=== PATIENT | female | born 1955 | race African-American/Black ===

== ENCOUNTER → 2017-05-14 | Outpatient (CLI) | payer OTHER ==
[~2017-05-14] MED LIST: ANT12.5 PO; ASPIR LOW81 MG PO; CLONIDINE HCL0.1 MG PO; FAMOTIDINE20 MG PO; FERATAB300 MG PO; HYDROCHLOROTH12.5 M2 PO; HYDROCOT25 M1 PO; KLOR-CON M1010 MEQ PO; LASIX20 MG PO; LIPITOR40 MG PO; LORAZEPAM0.5 MG PO; METFORMIN ER500 M1 PO; OMEPRAZOLE DR20 M1 PO; POTASSIUM CHLO10 MEQ PO; SENSIPAR30 M1 PO; TRE400 PO; ZESTRIL20 MG PO; ZOF4 PO; ZOFRAN ODT4 MG SL; ZOLOFT25 MG PO; ZOLOFT50 MG PO
== END | disposition home or self-care (01) ==
LOC: MA 08:38
PROC: BH02ZZZ Plain Radiography of Bilateral Breasts (ICD-10-PCS; principal; 2017-05-14)
DX: Z12.31 Encounter for screening mammogram for malignant neoplasm of breast (principal)
CPT/HCPCS: G0202

== ENCOUNTER 2017-06-16 05:24 | Emergency (ER) | payer OTHER ==
[2017-06-16 07:26] LABS: CALCIUM 8.2 mg/dL (8.5-10.1); CARBON DIOXIDE 26.7 mmol/L (21-32); POTASSIUM SERUM 3.7 mmol/L (3.5-5.1)
[2017-06-16 07:31] LABS: BILIRUBIN TOTAL 0.12 mg/dL (0.20-1.00); TOTAL PROTEIN, SERUM 7.1 g/dL (6.4-8.2)
[2017-06-16 07:33] LABS: BASOPHIL % 0.3 % (0-2); PLATELET COUNT 222 x10^3mcL (130-400)
[2017-06-16 07:36] LABS: RED CELL DISTRIBUTION WIDTH 15.9 % (11.5-14.5)
[2017-06-16 07:41] LABS: ALBUMIN 3.2 g/dL (3.4-5.0)
[2017-06-16 08:35] VITALS: BP 93/57
== END 2017-06-16 08:35 | disposition home or self-care (01) ==
LOC: ED 05:24
PROVIDERS: Emergency Medicine
DX: R07.9 Chest pain, unspecified (principal); I10 Essential (primary) hypertension; E78.00 Pure hypercholesterolemia, unspecified; M06.9 Rheumatoid arthritis, unspecified; Z79.899 Other long term (current) drug therapy; Z88.5 Allergy status to narcotic agent; Z88.8 Allergy status to other drugs, medicaments and biological substances
CPT/HCPCS: 36415; 83880; J1885; Q0092

== ENCOUNTER 2018-02-02 07:22 | Inpatient (IN) | payer OTHER ==
[~2018-02-02] VITALS: Ht 167.6 cm; Wt 86.7 kg
[2018-02-02 07:34] VITALS: Ht 167.6 cm; Wt 86.7 kg
[2018-02-02 08:35] LABS: BASOPHIL % 0.4 % (0-2); CALCIUM 8.7 mg/dL (8.5-10.1); CARBON DIOXIDE 30.5 mmol/L (21-32); PLATELET COUNT 257 x10^3mcL (130-400); POTASSIUM SERUM 3.8 mmol/L (3.5-5.1)
[2018-02-02 08:37] LABS: ALBUMIN 3.5 g/dL (3.4-5.0); BILIRUBIN TOTAL 0.3 mg/dL (0.20-1.00); RED CELL DISTRIBUTION WIDTH 16.9 % (11.5-14.5); TOTAL PROTEIN, SERUM 7.4 g/dL (6.4-8.2)
[2018-02-02 08:38] LABS: rbc morphology (normal/abnorm) ABNORMAL (NORMAL)
[2018-02-02] MEDS ORDERED: ZOLOFT25 MG PO (09:44)
[2018-02-02] MEDS ORDERED: POTASSIUM CHLO10 MEQ PO (09:44)
[2018-02-02] MEDS ORDERED: LIPITOR40 MG PO (09:45)
[2018-02-02] MEDS ORDERED: LISINOPRIL20 MG PO (09:45)
[2018-02-02] MEDS ORDERED: HYDROCHLORIC AC25 ML (09:45)
[2018-02-02 11:15] LABS: microscopic required? YES; urine erythrocyte TRACE (NEGATIVE)
[2018-02-02 11:24] LABS: CHOLESTEROL/HDL RATIO 3.7; MAGNESIUM 2.4 mg/dL (1.8-2.4); PHOSPHOROUS 3.5 mg/dL (2.5-4.9)
[2018-02-02 11:30] LABS: T3 TOTAL 1.18 ng/mL
[2018-02-02] MEDS ORDERED: LIPI10 PO (11:34)
[2018-02-02] MEDS ORDERED: HYDROCHLOROTHIA25 MG PO (11:39)
[2018-02-02 11:49] VITALS: BP 124/61
[2018-02-02 11:57] LABS: FREE T4 0.91 ng/dL (0.76-1.46); FREE THYROXINE INDEX 2.4 ug/dL (1.4-4.5); T4(THYROXINE) 7.9 ug/dL (4.7-13.3)
[2018-02-02 17:11] VITALS: BP 124/62
[2018-02-02 21:00] VITALS: BP 114/67
[2018-02-03 06:02] VITALS: BP 133/70
[2018-02-03 10:30] VITALS: BP 135/75
[2018-02-03 14:33] VITALS: BP 126/68
[2018-02-03 17:37] VITALS: BP 142/73
[2018-02-03 20:54] VITALS: BP 145/69
[2018-02-04 05:16] VITALS: BP 138/57
[2018-02-04 06:08] LABS: BASOPHIL % 0.4 % (0-2); PLATELET COUNT 246 x10^3mcL (130-400)
[2018-02-04 06:42] LABS: CALCIUM 8.4 mg/dL (8.5-10.1); CARBON DIOXIDE 28.4 mmol/L (21-32); CHLORIDE SERUM 108 mmol/L (98-107); CREATININE SERUM 0.8 mg/dL (0.6-1.0); GFR1 > 60 mL/min; GLUCOSE SERUM 92 mg/dL (74-106); POTASSIUM SERUM 3.8 mmol/L (3.5-5.1); SODIUM SERUM 141 mmol/L (136-145)
[2018-02-04 06:44] LABS: RED CELL DISTRIBUTION WIDTH 17.1 % (11.5-14.5)
[2018-02-04 09:02] VITALS: BP 155/82
[2018-02-04 12:58] VITALS: BP 143/73
[2018-02-04] MEDS ORDERED: FERROUS SULFAT325 M2 PO (14:12)
[2018-02-04] MEDS ORDERED: LIPI20 PO (14:13)
[2018-02-04] MEDS ORDERED: ECO81 PO (14:15)
[2018-02-04] MEDS ORDERED: PHARMASSURE VI500 MG PO (14:22)
[2018-02-04] MEDS ORDERED: METFORMIN HCL500 MG PO (14:28)
[2018-02-04 14:42] VITALS: BP 143/73
== END 2018-02-04 16:39 | disposition home or self-care (01) | DRG 206 ==
LOC: ED 07:22 → DU 09:40
PROVIDERS: Emergency Medicine; Family Medicine
DX: M94.0 Chondrocostal junction syndrome [Tietze] (principal); Z88.6 Allergy status to analgesic agent; Z88.8 Allergy status to other drugs, medicaments and biological substances; M06.9 Rheumatoid arthritis, unspecified; E78.00 Pure hypercholesterolemia, unspecified; F41.9 Anxiety disorder, unspecified; I10 Essential (primary) hypertension; E21.3 Hyperparathyroidism, unspecified; Z83.3 Family history of diabetes mellitus; Z82.49 Family history of ischemic heart disease and other diseases of the circulatory system; E11.65 Type 2 diabetes mellitus with hyperglycemia; D64.9 Anemia, unspecified
CPT/HCPCS: 82962; 83880; 84439; A9500; J2785; J7030; Q0092

== ENCOUNTER → 2018-05-28 | Outpatient (CLI) | payer OTHER ==
[~2018-05-28] MED LIST changes: +ECO81 PO; +FERROUS SULFAT325 M2 PO; +HYDROCHLORIC AC25 ML; +HYDROCHLOROTHIA25 MG PO; +LIPI10 PO; +LIPI20 PO; +LISINOPRIL20 MG PO; +METFORMIN HCL500 MG PO; +PHARMASSURE VI500 MG PO
== END | disposition home or self-care (01) ==
LOC: MA 09:35
PROC: BH02ZZZ Plain Radiography of Bilateral Breasts (ICD-10-PCS; principal; 2018-05-28)
DX: Z12.31 Encounter for screening mammogram for malignant neoplasm of breast (principal)
CPT/HCPCS: 77067

== ENCOUNTER 2018-07-04 16:06 | Emergency (ER) | payer OTHER ==
[~2018-07-04] VITALS: Ht 167.6 cm; Wt 83.9 kg
[2018-07-04 16:19] VITALS: Ht 167.6 cm; Wt 83.9 kg
[2018-07-04 17:32] LABS: BASOPHIL % 0.6 % (0-2); PLATELET COUNT 273 x10^3mcL (130-400)
[2018-07-04 17:33] LABS: RED CELL DISTRIBUTION WIDTH 17.2 % (11.5-14.5)
[2018-07-04 17:59] LABS: FREE T4 0.9 ng/dL (0.76-1.46); FREE THYROXINE INDEX 2.3 ug/dL (1.4-4.5)
[2018-07-04 18:03] LABS: microscopic required? YES; urine erythrocyte NEGATIVE (NEGATIVE)
[2018-07-04 18:08] LABS: CALCIUM 9.5 mg/dL (8.5-10.1); CARBON DIOXIDE 28.6 mmol/L (21-32); POTASSIUM SERUM 3.6 mmol/L (3.5-5.1)
[2018-07-04 18:09] LABS: T3 TOTAL 1.07 ng/mL
[2018-07-04 18:10] LABS: ALBUMIN 3.8 g/dL (3.4-5.0)
[2018-07-04 18:21] LABS: BILIRUBIN TOTAL 0.39 mg/dL (0.20-1.00); CHOLESTEROL/HDL RATIO 3.7; TOTAL PROTEIN, SERUM 8.2 g/dL (6.4-8.2)
[2018-07-04 20:58] VITALS: BP 149/88
== END 2018-07-04 20:58 | disposition home or self-care (01) ==
LOC: ED 16:06
PROVIDERS: Specialist
DX: N39.0 Urinary tract infection, site not specified (principal); I10 Essential (primary) hypertension; E78.00 Pure hypercholesterolemia, unspecified; F41.9 Anxiety disorder, unspecified
CPT/HCPCS: 36415; 83880; 84439; Q0092

== ENCOUNTER 2018-12-12 03:03 | Emergency (ER) | payer OTHER ==
[2018-12-12 03:20] VITALS: Ht 167.6 cm
[2018-12-12 05:19] VITALS: BP 130/86
== END 2018-12-12 05:19 | disposition home or self-care (01) ==
LOC: ED 03:03
DX: R51 Headache (principal); N39.0 Urinary tract infection, site not specified; R11.0 Nausea; I10 Essential (primary) hypertension; M06.9 Rheumatoid arthritis, unspecified; Z98.890 Other specified postprocedural states; Z88.5 Allergy status to narcotic agent; Z88.1 Allergy status to other antibiotic agents
CPT/HCPCS: J1885; Q0162

== ENCOUNTER 2019-06-28 00:59 | Emergency (ER) | payer OTHER ==
[~2019-06-28] VITALS: Ht 167.6 cm; Wt 88.0 kg
[2019-06-28 02:20] LABS: BASOPHIL % 0.5 % (0-2); PLATELET COUNT 224 x10^3mcL (130-400)
[2019-06-28 02:21] LABS: RED CELL DISTRIBUTION WIDTH 16.7 % (11.5-14.5)
[2019-06-28 02:31] LABS: CALCIUM 8.3 mg/dL (8.5-10.1); CARBON DIOXIDE 29.2 mmol/L (21-32); CREATININE SERUM 1.1 mg/dL (0.6-1.0); POTASSIUM SERUM 3.8 mmol/L (3.5-5.1)
[2019-06-28 02:35] LABS: BILIRUBIN TOTAL 0.19 mg/dL (0.20-1.00); TOTAL PROTEIN, SERUM 7.2 g/dL (6.4-8.2)
[2019-06-28 02:36] LABS: ALBUMIN 3.2 g/dL (3.4-5.0)
[2019-06-28 06:56] VITALS: BP 139/71
== END 2019-06-28 06:45 | disposition home or self-care (01) ==
LOC: ED 00:59
PROVIDERS: Emergency Medicine
DX: R07.89 Other chest pain (principal); R06.02 Shortness of breath; I10 Essential (primary) hypertension; E78.00 Pure hypercholesterolemia, unspecified; M06.9 Rheumatoid arthritis, unspecified; F41.9 Anxiety disorder, unspecified; Z88.8 Allergy status to other drugs, medicaments and biological substances; Z88.1 Allergy status to other antibiotic agents; Z88.5 Allergy status to narcotic agent
CPT/HCPCS: 36415; 85378

== ENCOUNTER 2019-07-10 18:53 | Emergency (ER) | payer OTHER ==
[~2019-07-10] VITALS: Ht 167.6 cm; Wt 84.4 kg
[2019-07-10 19:54] LABS: ALBUMIN 3.4 g/dL (3.4-5.0); BILIRUBIN TOTAL 0.2 mg/dL (0.20-1.00); CALCIUM 8.6 mg/dL (8.5-10.1); CARBON DIOXIDE 31.8 mmol/L (21-32); CREATININE SERUM 1.1 mg/dL (0.6-1.0); POTASSIUM SERUM 3.6 mmol/L (3.5-5.1); TOTAL PROTEIN, SERUM 7.7 g/dL (6.4-8.2)
[2019-07-10 20:01] LABS: BASOPHIL % 0.4 % (0-2); PLATELET COUNT 296 x10^3mcL (130-400)
[2019-07-10 20:04] LABS: microscopic required? YES; urine erythrocyte TRACE (NEGATIVE)
[2019-07-10 20:09] LABS: RED CELL DISTRIBUTION WIDTH 16.9 % (11.5-14.5)
[2019-07-10 21:00] LABS: rbc morphology (normal/abnorm) ABNORMAL (NORMAL)
[2019-07-10 23:20] VITALS: BP 124/68
== END 2019-07-10 23:20 | disposition home or self-care (01) ==
LOC: ED 18:53
PROVIDERS: Emergency Medicine
DX: N39.0 Urinary tract infection, site not specified (principal); R51 Headache; I10 Essential (primary) hypertension; E78.00 Pure hypercholesterolemia, unspecified; F41.9 Anxiety disorder, unspecified; M06.9 Rheumatoid arthritis, unspecified; Z88.5 Allergy status to narcotic agent; Z88.1 Allergy status to other antibiotic agents
CPT/HCPCS: J1956; J7030

== ENCOUNTER 2020-03-08 17:54 | Emergency (ER) | payer OTHER, SELFPAY ==
[~2020-03-08] VITALS: Ht 167.6 cm; Wt 88.0 kg
[2020-03-08 18:03] VITALS: Ht 167.6 cm; Wt 88.0 kg
[2020-03-08 19:30] LABS: BASOPHIL % 0.3 % (0-2); PLATELET COUNT 266 x10^3mcL (130-400)
[2020-03-08 19:32] LABS: RED CELL DISTRIBUTION WIDTH 16.8 % (11.5-14.5)
[2020-03-08 19:54] LABS: ALBUMIN 3.5 g/dL (3.4-5.0); ALKALINE PHOSPHATASE 103 U/L (46-116); ALT/SGPT 35 U/L (14-59); AST/SGOT 19 U/L (15-37); BILIRUBIN TOTAL 0.11 mg/dL (0.20-1.00); CALCIUM 9.1 mg/dL (8.5-10.1); CARBON DIOXIDE 31.2 mmol/L (21-32); CHLORIDE SERUM 103 mmol/L (98-107); CREATININE SERUM 0.9 mg/dL (0.6-1.0); GFR1 > 60 mL/min; GLUCOSE SERUM 108 mg/dL (74-106); LACTIC DEHYDROGENASE (LDH) 201 U/L (100-190); POTASSIUM SERUM 3.3 mmol/L (3.5-5.1); SODIUM SERUM 140 mmol/L (136-145); TOTAL PROTEIN, SERUM 7.5 g/dL (6.4-8.2)
[2020-03-08 19:58] LABS: C REACTIVE PROTEIN < 0.2 mg/dL (<=0.9)
[2020-03-08 21:26] LABS: microscopic required? YES; urine erythrocyte TRACE (NEGATIVE)
[2020-03-08 21:40] VITALS: BP 115/43
== END 2020-03-08 22:02 | disposition home or self-care (01) ==
LOC: ED 17:54
PROVIDERS: Emergency Medicine
DX: J10.1 Influenza due to other identified influenza virus with other respiratory manifestations (principal); I10 Essential (primary) hypertension; E78.00 Pure hypercholesterolemia, unspecified; Z20.828 Contact with and (suspected) exposure to other viral communicable diseases; Z88.5 Allergy status to narcotic agent; Z88.1 Allergy status to other antibiotic agents; Z88.8 Allergy status to other drugs, medicaments and biological substances
CPT/HCPCS: 36600; 83880; 85378; 87804; Q0092

== ENCOUNTER 2020-03-29 22:26 | Observation (INO) | payer OTHER ==
[~2020-03-29] VITALS: Ht 167.6 cm; Wt 88.0 kg
[2020-03-29 22:30] VITALS: Ht 167.6 cm; Wt 88.0 kg
[2020-03-29 23:39] LABS: BASOPHIL % 0.6 % (0-2); PLATELET COUNT 258 x10^3mcL (130-400)
[2020-03-29 23:40] LABS: RED CELL DISTRIBUTION WIDTH 17.3 % (11.5-14.5)
[2020-03-29 23:45] LABS: CALCIUM 9.5 mg/dL (8.5-10.1); CARBON DIOXIDE 31.3 mmol/L (21-32); CREATININE SERUM 1.1 mg/dL (0.6-1.0); POTASSIUM SERUM 3.7 mmol/L (3.5-5.1)
[2020-03-29 23:50] LABS: ALBUMIN 3.5 g/dL (3.4-5.0); BILIRUBIN TOTAL 0.2 mg/dL (0.20-1.00); TOTAL PROTEIN, SERUM 7.5 g/dL (6.4-8.2)
[2020-03-30] VITALS (7 sets, daily range): BP systolic 106–168; BP diastolic 45–79
[2020-03-30 00:51] LABS: AMPHETAMINE QUAL UR NONE DETECTED (See below)
[2020-03-30 00:58] LABS: UA SPECIFIC GRAVITY 1.025 (1.005-1.035); microscopic required? YES; urine erythrocyte TRACE (NEGATIVE)
[2020-03-30] MEDS ORDERED: ATIVAN0.5 M1 PO (01:27)
[2020-03-30] MEDS ORDERED: ACID REDUCER20 MG PO (11:40)
== END 2020-03-30 16:50 | disposition home or self-care (01) ==
LOC: ED 22:26 → DU 03-30 02:46
PROVIDERS: Student in an Organized Health Care Education/Training Program; ADMIT Internal Medicine
DX: R07.89 Other chest pain (principal); I10 Essential (primary) hypertension; E78.5 Hyperlipidemia, unspecified; J11.1 Influenza due to unidentified influenza virus with other respiratory manifestations; M06.9 Rheumatoid arthritis, unspecified; E11.9 Type 2 diabetes mellitus without complications; E78.00 Pure hypercholesterolemia, unspecified; E21.3 Hyperparathyroidism, unspecified
CPT/HCPCS: 83880; G0378; J7030; Q0092

== ENCOUNTER 2020-07-25 20:37 | Emergency (ER) | payer OTHER, SELFPAY ==
[~2020-07-25] VITALS: Ht 167.6 cm; Wt 85.7 kg
[~2020-07-25 20:37] MED LIST changes: +ACID REDUCER20 MG PO; +ATIVAN0.5 M1 PO
[2020-07-25 20:39] VITALS: Ht 167.6 cm; Wt 85.7 kg
[2020-07-25 22:57] VITALS: BP 146/88
== END 2020-07-25 22:57 | disposition home or self-care (01) ==
LOC: ED 20:37
DX: R05 Cough (principal); R07.89 Other chest pain; I10 Essential (primary) hypertension; E78.00 Pure hypercholesterolemia, unspecified; M06.9 Rheumatoid arthritis, unspecified; Z88.1 Allergy status to other antibiotic agents; Z88.5 Allergy status to narcotic agent

== ENCOUNTER 2020-08-17 17:45 | Emergency (ER) | payer OTHER ==
[~2020-08-17] VITALS: Ht 172.7 cm; Wt 85.3 kg
[2020-08-17 18:14] VITALS: Ht 172.7 cm; Wt 85.3 kg
[2020-08-17 21:28] LABS: CARBON DIOXIDE 31.5 mmol/L (21-32); POTASSIUM SERUM 4.1 mmol/L (3.5-5.1)
[2020-08-17 21:29] LABS: ALBUMIN 3.8 g/dL (3.4-5.0); BILIRUBIN TOTAL 0.32 mg/dL (0.20-1.00); TOTAL PROTEIN, SERUM 8.4 g/dL (6.4-8.2)
[2020-08-18 01:24] VITALS: BP 131/62
[2020-08-23 16:34] LABS: PLATELET COUNT 294 x10^3mcL (130-400); RED CELL DISTRIBUTION WIDTH 16.8 % (11.5-14.5)
[2020-08-23 16:35] LABS: BASOPHIL % 0.1 % (0-2)
== END 2020-08-18 01:24 | disposition home or self-care (01) ==
LOC: ED 17:45
DX: R10.13 Epigastric pain (principal); M54.6 Pain in thoracic spine; I10 Essential (primary) hypertension; E78.00 Pure hypercholesterolemia, unspecified; M06.9 Rheumatoid arthritis, unspecified; Z88.1 Allergy status to other antibiotic agents; Z88.5 Allergy status to narcotic agent

== ENCOUNTER 2020-10-25 20:29 | Emergency (ER) | payer OTHER ==
[~2020-10-25] VITALS: Ht 167.6 cm; Wt 84.8 kg
[2020-10-25 20:32] VITALS: Ht 167.6 cm; Wt 84.8 kg
[2020-10-25 21:54] LABS: CARBON DIOXIDE 27.6 mmol/L (21-32)
[2020-10-25 21:56] LABS: BASOPHIL % 0.5 % (0.2-1.3); PLATELET COUNT 262 x10^3mcL (179-408)
[2020-10-25 21:58] LABS: ALBUMIN 3.8 g/dL (3.4-5.0); BILIRUBIN TOTAL 0.18 mg/dL (0.20-1.00); TOTAL PROTEIN, SERUM 7.5 g/dL (6.4-8.2)
[2020-10-25 21:59] LABS: RED CELL DISTRIBUTION WIDTH 17.7 % (12.3-17.7)
[2020-10-25 22:00] LABS: rbc morphology (normal/abnorm) NORMAL (NORMAL)
[2020-10-26 00:02] VITALS: BP 159/87
== END 2020-10-26 00:02 | disposition home or self-care (01) ==
LOC: ED 20:29
PROVIDERS: Emergency Medicine
DX: R06.02 Shortness of breath (principal); I10 Essential (primary) hypertension; E78.00 Pure hypercholesterolemia, unspecified; Z98.890 Other specified postprocedural states; Z88.5 Allergy status to narcotic agent; Z88.0 Allergy status to penicillin